=== PATIENT | female | born 1995 | race Two or more races ===

== ENCOUNTER 2021-03-16 05:45 | Day surgery (SDC) | payer OTHER ==
[~2021-03-16 05:45] MED LIST: ALLEGRA PO
== END 2021-03-16 13:05 | disposition home or self-care (01) ==
LOC: CIR.AMB 05:45
PROVIDERS: ATTEND Obstetrics & Gynecology
DX: N93.8 Other specified abnormal uterine and vaginal bleeding (principal)

== ENCOUNTER 2022-10-05 09:33 | Outpatient (CLI) | payer OTHER | END 2022-10-05 09:38 | disposition home or self-care (01) | LOC: SONOGRAMA 09:33 | PROVIDERS: ATTEND Pathology Anatomic Pathology & Clinical Pathology | DX: D44.0 Neoplasm of uncertain behavior of thyroid gland (principal); E07.9 Disorder of thyroid, unspecified ==

== ENCOUNTER 2023-04-16 07:49 | Outpatient (CLI) | payer OTHER | END 2023-04-16 07:56 | disposition home or self-care (01) | LOC: SONOGRAMA 07:49 | PROVIDERS: ATTEND Pathology Anatomic Pathology | DX: D34 Benign neoplasm of thyroid gland (principal); E07.89 Other specified disorders of thyroid; E06.3 Autoimmune thyroiditis; E04.2 Nontoxic multinodular goiter ==